=== PATIENT | female | born 1995 | race Caucasian/White ===

== ENCOUNTER 2016-12-20 08:53 | Emergency (ER) | payer OTHER ==
[~2016-12-20] VITALS: Ht 157.5 cm; Wt 131.8 kg
[~2016-12-20 08:53] MED LIST: NOCURR; SULF-168 PO
[2016-12-20 10:33] VITALS: BP 124/71
== END 2016-12-20 10:35 | disposition home or self-care (01) ==
LOC: EMS 08:55
DX: T16.2XXA Foreign body in left ear, initial encounter (principal); R03.0 Elevated blood-pressure reading, without diagnosis of hypertension; X58.XXXA Exposure to other specified factors, initial encounter; Y93.89 Activity, other specified; Y92.89 Other specified places as the place of occurrence of the external cause; Y99.8 Other external cause status
CPT/HCPCS: 99283; 99284

== ENCOUNTER 2017-01-01 19:55 | Emergency (ER) | payer OTHER ==
[~2017-01-01] VITALS: Ht 157.5 cm; Wt 127.3 kg
[~2017-01-01 19:55] MED LIST changes: -SULF-168 PO
[2017-01-01] MEDS ORDERED: DEPOP150I IM (20:10)
[2017-01-01 20:20] VITALS: BP 128/75
== END 2017-01-01 20:29 | disposition home or self-care (01) ==
LOC: EMS 19:57
DX: I88.9 Nonspecific lymphadenitis, unspecified (principal); R68.89 Other general symptoms and signs
CPT/HCPCS: 99283

== ENCOUNTER 2017-02-07 18:50 | Emergency (ER) | payer OTHER ==
[~2017-02-07] VITALS: Ht 160 cm; Wt 131.8 kg
[~2017-02-07 18:50] MED LIST changes: +DEPOP150I IM
[2017-02-07 18:58] VITALS: BP 141/72
[2017-02-07] MEDS ORDERED: IBUPROFEN 800 MG TABLET PO ONE (19:30)
== END 2017-02-07 19:29 | disposition home or self-care (01) ==
LOC: EMS 18:51
DX: S99.821A Other specified injuries of right foot, initial encounter (principal); L84 Corns and callosities; W23.0XXA Caught, crushed, jammed, or pinched between moving objects, initial encounter; Y93.89 Activity, other specified; Y92.89 Other specified places as the place of occurrence of the external cause; Y99.8 Other external cause status
CPT/HCPCS: 99282